=== PATIENT | female | born 1945 | race African-American/Black ===

== ENCOUNTER → 2017-05-12 14:08 | Outpatient (CLI) | payer MEDICARE | END | disposition home or self-care (01) | LOC: D.MAMMO 11:15 | DX: Z12.31 Encounter for screening mammogram for malignant neoplasm of breast (principal) ==

== ENCOUNTER → 2018-05-26 19:29 | Outpatient (CLI) | payer MEDICARE | END | disposition home or self-care (01) | LOC: D.MAMMO 09:30 | DX: Z12.31 Encounter for screening mammogram for malignant neoplasm of breast (principal) ==

== ENCOUNTER 2019-05-30 19:00 | Outpatient (CLI) | payer MEDICARE | END 2019-05-30 23:59 | disposition home or self-care (01) | LOC: D.MAMMO 19:00 | PROVIDERS: ATTEND Family Medicine | DX: Z12.31 Encounter for screening mammogram for malignant neoplasm of breast (principal) ==

== ENCOUNTER 2019-09-13 11:40 | Observation (INO) | payer MEDICARE ==
[2019-09-13] VITALS (8 sets, daily range): BP systolic 123–169; BP diastolic 47–88; Ht 160 cm; Wt 108.2 kg
[~2019-09-13] VITALS: Ht 160 cm; Wt 108.2 kg
--- NOTE | ~2019-09-13 | HEMODYNAMI ---
PATIENT:NADYA CRAMER MEDICAL RECORD: [id number] : 41 [facility] D.2122 [id number] ADMISSION DATE: 09/13/19 Generatedon:09/14/201915:36 Patient name: NADYA CRAMER Patient #: [id number] SSN: [id number] : 1945 Date of study: 09/14/2019 Page: Of Hemodynamic Procedure Report Patient Data Patient Demographics Procedure consent was obtained First Name: NADYA Gender: Female Last Name: BELA : 1945 Patient #: [id number] Age: 74 year(s) Race: Black SSN: [id number] Additional ID: [id number] Contact details Address: [place] [address] State: [place] City: [place] Zip code: [address] Past Medical History Allergies: No known allergies Admission Admission Data Admission Date: 09/13/2019 Admission Time: 13:49 Arrival Date: 09/14/2019 Arrival Time: 0:00 Admit Source: Other Insurance Payor: Medicare Room #: D.2122 [facility] #: [id number] Height (in.): 63 BSA: 2.08 (m2) Height (cm.): 160.02 BMI: 42.25 (kg/m2) Weight (lbs.): 238.5 Weight (kg.): 108.18 Lab Results Lab Result Date: 09/14/2019 Lab Result Time: 0:00 Biochemistry Name Units Result Min Max BUN mg/dl 9 --(*---)-- 7 18 CK-MB ng/ml 2.4 --(--*-)-- 0 3.6 Creatinine mg/dl 0.8 --(-*--)-- 0.6 1.3 eGFR ml/min 73.33899 *-(----)-- 90 120 NONAFRICAN Troponin l ng/ml 0.017 --(-*--)-- 0 0.06 CBC Name Units Result Min Max Hematocrit % 43.6 --(*---)-- 42 54 Hemoglobin g/dl 14.4 --(*---)-- 13.5 17.5 Procedure Procedure Types Cath Procedure Diagnostic Procedure [facility] ED w/Coronaries Procedure Description Procedure Date Procedure Date: 09/14/2019 Procedure Start Time: 15:22 Procedure End Time: 15:35 Procedure Staff Name Function Davidson Jacinto MD Performing Physician Fela Richards RT Monitor Kathrine Sebastian RT Scrub Keith Moctezuma RN Nurse Procedure Data Cath Procedure Fluoroscopy Diagnostic fluoroscopy Total fluoroscopy Time: 1.4 time: 1.4 min min Diagnostic fluoroscopy Total fluoroscopy dose: 369 dose: 369 mGy mGy Contrast Material Contrast Material Type Amount (ml) Isovue 370 40 Entry Location Entry Primary Successful Side Size Upsize Upsize Entry Closure Succes sful Closure Location (Fr) 1 (Fr) 2 (Fr) Remarks Device Remarks Femoral Right 5 Fr Exoseal artery Estimated blood loss: 5 ml Diagnostic catheters Device Type Used For End Catheter Placement MULTIPACK JL 4.0 5Fr Procedure catheter MULTIPACK 3DRC 5Fr Procedure catheter MULTIPACK Pigtail 5 Fr Procedure catheter Procedure Complications No complications Procedure Medications Medication Administration Route Dosage Oxygen etCO2 Nasal cannula 2 l/min Lidocaine 2% added to field 20 Heparin Flush Bag added to field 2 bags (1000units/500ml NS) 0.9% NaCl I.V. 100 ml/hr Versed I.V. 1 mg Fentanyl I.V. 50 mcg Versed I.V. 1 mg Fentanyl I.V. 50 mcg Hemodynamics Rest BSA: 2.08 (m2) O2 Consumption: Estimated: 182.63 (ml/min) O2 Consumption indexed : Estimated:87.8 (ml/min/m) Heart Rate: 62 (bpm) Pressure Samples Time Site Value (mmHg) Purpose Heart Use Rate(bpm) 15:29 LV 134/13,13 Snapshot 62 15:30 AO 116/94(90) Pullback 60 Gradients Valve Time Site Site 2 Mean SEP/DFP Peak To Heart Use 1 (mmHg) (sec/min) Peak Rate (mmHg) (bpm) Aortic 15:30 LV AO 11 14 60 116/94(90) Calculations Valve P-P Mean Valve Index Valve Source Name Gradient Area Flow (cm2) Aortic 11 11 Snapshots Pre Cath Intra NCS Post Cath Vital Signs Time Heart Resp SPO2 etCO2 NIBP (mmHg) Rhythm Pain Sedation Rate (ipm) (%) (mmHg) Status Level (bpm) 15:14:52 53 18 98 25.7 165/92(130) NSR 0 (11) 10(A) , No pain 15:19:10 55 17 98 35.5 146/81(110) NSR 0 (11) 10(A) , No pain 15:23:20 53 20 98 34 142/82(106) NSR 0 (11) 10(A) , No pain 15:27:30 57 15 97 29.5 132/79(106) NSR 0 (11) 10(A) , No pain 15:32:29 57 14 38.5 Measuring NSR 0 (11) 10(A) , No pain 15:32:37 54 14 37.8 132/82(111) NSR 0 (11) 10(A) , No pain Medications Time Medication Route Dose Verified Delivered Reason Notes Eff ectiveness by by 15:15:11 Oxygen etCO2 2 Davidson Keith used for Nasal l/min St Chadd Moctezuma RN procedure cannula 15:15:17 Lidocaine 2% added 20ml Davidson Davidson for local to vial [facility] anesthetic field MD ALBRECHT 15:15:22 Heparin Flush added 2 Davidson Davidson used for Bag to bags [facility] procedure (1000units/500ml field MD ALBRECHT NS) 15:15:30 0.9% NaCl I.V. 100 Davidson Marlenyie Per ml/hr St Chadd Moctezuma RN physician 15:21:09 Versed I.V. 1 mg Davidson [address]ie for St Chadd Moctezuma RN sedation 15:21:14 Fentanyl I.V. 50 Davidson Marlen[address]ie for mcg St Chadd Moctezuma RN sedation 15:25:44 Versed I.V. 1 mg Davidson [address] for St Chadd Moctezuma RN sedation 15:25:48 Fentanyl I.V. 50 Davidson Farmerie for kiera Cantu RN sedation Procedure Log Time Note 14:42:24 Informed consent obtained and on chart 14:42:44 Procedure Status Urgent Heart Cath (IP). 14:42:45 Time tracking: Regular hours (M-F 7:00 - 5:00) 14:42:50 Plan of Care:Hemodynamics will remain stable., Cardiac rhythm will remain stable., Comfort level will be maintained., Respiratory function will remain adequate., Patient/ family verbilizes understanding of procedure., Procedure tolerated without complication., Recovers from procedure without complications.. 14:55:11 H&P Date Dictated: 09/13/2019 Within 30 days and on chart.. 14:55:19 Stress Test: no; N/A ? 14:55:21 Risk of Mortality: 0.2 14:55:24 Risk of blood transfusion: .4 14:55:27 Risk of EMILY: 0.6 14:55:57 Lab results completed and on chart. 14:56:34 Lab Result : BUN 9 mg/dl 14:56:34 Lab Result : Creatinine 0.8 mg/dl 14:56:34 Lab Result : CK-MB 2.4 ng/ml 14:56:34 Lab Result : Troponin l 0.017 ng/ml 14:56:34 Lab Result : eGFR NONAFRICAN 73.35263 ml/min 14:56:34 Lab Result : Hemoglobin 14.4 g/dl 14:56:34 Lab Result : Hematocrit 43.6 % 14:56:41 Alarms reviewed by R. N. 14:56:41 Sharps counted by scrub and verified by R.N. 14:56:55 Keith Moctezuma RN sent for patient. Start room use. 14:57:15 Arrival Date: 09/14/2019 12:00:00 AM 14:57:19 Insurance Payor : Medicare 14:57:39 Admit Source: Other 14:57:45 Patient Height : 63 inches 14:57:49 Patient Weight : 238.5 lbs 15:04:04 Patient received from Med II to CCL 1 Alert and oriented. Tansferred to table in Supine position. 15:04:05 Warm blankets applied, and yariel hugger turned on for patient comfort. 15:04:05 Correct patient and procedure confirmed by team. 15:04:06 ECG and BP/O2 sat monitors applied to patient. 15:04:09 Pre-procedure instructions explained to patient. 15:04:10 Pre-procedure instructions explained to patient. 15:04:15 Pre-op teaching completed and patient verbalized understanding. 15:13:47 Vital chart was started 15:15:11 Oxygen 2 l/min etCO2 Nasal cannula was administered by Buffie Moctezuma RN; used for procedure; Verbal order read back and verified. 15:15:17 Lidocaine 2% 20ml vial added to field was administered by Davidson Jacinto MD; for local anesthetic; Verbal order read back and verified. 15:15:22 Heparin Flush Bag (1000units/500ml NS) 2 bags added to field was administered by Davidson Jacinto MD; used for procedure; Verbal order read back and verified. 15:15:30 0.9% NaCl 100 ml/hr I.V. was administered by Keith Moctezuma RN; Per physician; Verbal order read back and verified. 15:16:25 Family unavailable. 15:16:27 Patient NPO since Lunch. 15:16:32 Patient allergic to No known allergies 15:16:35 Is the patient allergic to Iodine/contrast media? No. 15:16:37 Was the patient premedicated? N/A 15:16:39 Is patient on blood thinner?No 15:16:43 Patient diabetic? No. 15:16:45 If diabetic: On Metformin? N/A 15:16:49 Patient not . Patient is over age 55. 15:16:49 ----Pre-sedation anethsthesia assessment.---- 15:16:52 Previous problem with sedation/anesthesia? No ? 15:16:53 Snore? Yes 15:16:54 Sleep apnea? No 15:16:56 Deviated septum? No 15:16:57 Opens mouth fully? Yes 15:16:58 Sticks out tongue? Yes 15:17:02 Airway obstruction? No ? 15:17:04 Dentures? No ? 15:17:07 Pre procedure: right dorsailis pedis pulse 2+ Normal; easily identifiable; not easily obliterated 15:17:11 Patient pain scale 0/10 ?. 15:17:25 IV patent on arrival in right wrist with 0.9% NaCl at [facility]. 15:17:31 Right groin area was prepped with chlora-prep and draped in sterile fashion 15:17:33 --------ALL STOP TIME OUT------ 15:17:34 Final Timeout: patient, procedure, and site verified with staff and physician. All members of the team are in agreement. 15:17:36 Right groin site verified by team. 15:17:39 Fire Safety Assessment: A--An alcohol-based skin anteseptic being used preoperatively., C--Open oxygen or nitrous oxide is being used., D--An ESU, laser, or fiber-optic light is being used. 15:17:44 Physical assessment completed. ASA score P 2 - A patient with mild systemic disease as per Davidson Jacinto MD. 15:17:47 2) 60-89 Mildly reduced kidney function, and other findings (as for stage 1) point to kidney disease. 15:17:59 Maximum allowable contrast dose (3.7 X eGFR X 0.75)205 ml. 15:18:04 Sedation plan: IV Moderate Sedation Medication:Versed, Fentanyl 15:18:07 Use device set Femoral Dx 15:18:09 ACIST Syringe (28810) opened to sterile field. 15:18:09 Bag Decanter (2002S) opened to sterile field. 15:18:10 Medline Cath Pack ([id number]) opened to sterile field. 15:18:11 ACIST Hand Control (58279) opened to sterile field. 15:18:12 ACIST Manifold (47650) opened to sterile field. 15:18:13 DIAGNOSTIC Multipack 5Fr catheter set (WH0325) opened to sterile field. 15:18:[address] [place] (GXO983) opened to sterile field. 15:18:15 EMERALD Guide Wire (941-748) opened to sterile field. 15:21:09 Versed 1 mg I.V. was administered by Keith Moctezuma RN; for sedation; Verbal order read back and verified. 15:21:14 Fentanyl 50 mcg I.V. was administered by Keith Moctezuma RN; for sedation; Verbal order read back and verified. 15:22:33 Procedure started. 15:22:33 Full Disclosure recording started 15:22:50 Local anesthetic to right femoral artery with Lidocaine 2% by Davidson Jacinto MD.INITIAL ACCESS ONLY 15:23:17 A 5 Fr sheath was inserted into the Right Femoral artery 15:25:00 A MULTIPACK JL 4.0 5Fr catheter was advanced over the wire and used for Procedure. 15:25:44 Versed 1 mg I.V. was administered by Keith Moctezuma RN; for sedation; Verbal order read back and verified. 15:25:48 Fentanyl 50 mcg I.V. was administered by Keith Moctezuma RN; for sedation; Verbal order read back and verified. 15::48 LCA angiography performed. 15::36 Catheter removed. 15::57 A MULTIPACK 3DRC 5Fr catheter was advanced over the wire and used for Procedure. 15:27:29 RCA angiography performed. 15:28:10 Catheter removed. 15::25 A MULTIPACK Pigtail 5 Fr catheter was advanced over the wire and used for Procedure. 15::43 LV hemodynamics recorded. ::47 Injector settings: Ml/sec: 10, Volume: 20, 15::49 LV gram done using GILL 15::55 EF : 55 % 15:30:01 Catheter removed. 15:30:12 EXOSEAL 5Fr (EX500) opened to sterile field. 15:30:22 Sheath removed intact; hemostasis achieved with Exoseal to the Right Femoral artery. 15:30:40 Procedure ended.(Physican Out) 15::48 Fluoroscopy time 01.40 minutes. 15:30:53 Fluoroscopy dose: 369 mGy 15:30:53 Flurop Dose total: 369 15:31:00 Dose Area Product 66073 mGy/cm. 15:31:04 Contrast amount:Isovue 370 40ml. 15:31:06 Sharps counted by scrub and verified by R.N. 15:31:09 Maximum allowable dose exceeded? No. 15:31:14 Post-op/insertion site Right Femoral artery dressed using a 4 x 4 and Tegaderm. 15:31:29 Post right femoral artery:stable, soft, clean and dry 15::37 Post Procedure Pulses reassessed and unchanged 15::40 Post-procedure physical assessment completed. ASA score P 2 - A patient with mild systemic disease as per Davidson Jacinto MD. 15:31:44 Post procedure rhythm: unchanged. 15::46 Estimated blood loss: 5 ml 15::47 Post procedure instruction explained to patient.Patient verbalizes understanding. 15::47 Patient needs reinforcement of post procedure teaching. 15:34:14 [place] 1-Way Male Rotating (N56332) opened to sterile field. 15:34:22 Procedure and supply charges have been captured, reviewed, submitted and are correct. 15::43 Procedure Complication : No complications 15::47 Vital chart was stopped 15:34:50 [facility] Findings: mild to moderate CAD (<70%) 15:34:51 Operative report dictated upon procedure completion. 15:34:52 See physician's report for complete and final results. 15:34:54 Report given to [facility]. 15:34:57 Patient transfered to [facility] II with Bed. 15:35:00 Procedure ended. 15:35:00 Full Disclosure recording stopped 15:35:46 End room use (Document Last) 15:35:56 End room use (Document Last) 15:36:41 End room use (Document Last) Device Usage Item Name Manufacture Quantity Catalog Hospital Part Current Minimal L ot# / Number Charge Number Stock Stock Serial# Code ACIST Acist 1 94053 259357 142894 099613 20 Syringe Medical (80624) Systems Inc Bag Microtek 1 398541 18849 714180 5 Decanter Medical Inc. () Medline Medline 1 [id number] 529858 82954 186074 5 Cath Pack (JLEY06569) ACIST Hand Acist 1 66034 331054 253534 485138 5 Control Medical (73063) Systems Inc ACIST Acist 1 60633 046542 330513 419640 5 Manifold Medical (67192) Systems Inc DIAGNOSTIC Cardinal 1 JL9013 918792 30090 838219 30 Multipack Health 5Fr catheter set (RR2983) SHEATH 5FR Terumo [address] VTD[address] 24[address]95 245739 255266 [address] [place] (CRO194) EMERALD Cardinal 1 502-455 944060 173485 604570 5 Guide Wire Health (502-455) MULTIPACK Cardinal 1 091851 5 JL 4.0 5Fr Health catheter MULTIPACK Cardinal 1 179930 5 3DRC 5Fr Health catheter MULTIPACK Cardinal 1 404222 5 Pigtail 5 Health Fr catheter EXOSEAL 5Fr Cardinal 1 EX500 811596 708059 755498 10 (EX500) [facility] 1 Z53968 202697 40384 036634 [address] 1-[address] Male Rotating (Y00675) Signature Audit [place] Stage Time Signature Unsigned Intra-Procedure 09/14/2019 Fela Richards 3:35:56 PM RT(R) Intra-Procedure 09/14/2019 Keiht Moctezuma RN 3:36:41 PM Intra-Procedure 09/14/2019 Davidson Coffey 3:36:56 PM Chadd ALBRECHT [facility] [address] [place] [address]
--- NOTE | ~2019-09-13 | OP ---
PATIENT NAME: NADYA CRAMER MEDICAL RECORD: [id number] :41 LOCATION:D.M2 D.2121 ADMISSION DATE:09/13/19 SURGEON: BELGICA RODRÍGUEZ MD DATE OF OPERATION: 09/14/2019 PROCEDURE: Left heart catheterization, selective coronary angiography, right femoral artery approach. CATHETERS: A 5-Korean sheath, 5/4 left and right Vinod, 5/4 pig. The procedure was well tolerated. The patient returned to ritchie, sheath removed. ExoSeal device placed. FINDINGS: Left ventriculography in 30-degree GILL view: Normal wall motion, normal systolic function. CORONARY ANATOMY: LEFT MAIN: Left main is free of disease. LAD: LAD is free of disease at the diagonal system . CIRCUMFLEX: Free of disease in the marginal system. RIGHT CORONARY ARTERY: Dominant artery is PDA, free of disease. IMPRESSION: Normal LV systolic function. Normal coronary anatomy. TRANSINT:[id number] Voice Confirmation ID: [id number] DOCUMENT ID: [id number] BELGICA RODRÍGUEZ MD CC: [id number] DICTATION DATE: 09/14/19 1540 CONTROL SYSTEMS ENGINEER: 09/14/19 2212 ADM IN [facility] [address] [place] [address]
[2019-09-13] MEDS ORDERED: COREG6.25 MG (12:07)
[2019-09-13 12:21] LABS: HEMATOCRIT 46.1 % (36.0-48.0); HEMOGLOBIN 15.4 g/dL (12-16); MCHC 33.4 g/dL (31.0-37.0); MCV 86.8 fL (80.0-100.0); MEAN PLATELET VOLUME 9.4 fL (7.4-10.4); PLATELET COUNT 236 10x3/uL (130-400); RBC 5.31 10x6/uL (4.00-5.40); RDW 13.6 % (11.5-14.5); WBC 4.9 10x3/uL (4.8-10.8)
[2019-09-13 12:30] LABS: APTT 31.1 SECONDS (22.8-39.4); CALC OSMOLALITY 280 mosm/kg (275-300); CALCIUM 9.7 mg/dL (8.5-10.1); CARBON DIOXIDE 28.5 mmol/L (21.0-32.0); CHLORIDE - SERUM 104 mmol/L (98-107); GLUCOSE 101 mg/dL (74-106); INR 0.98 (0.85-1.17); POTASSIUM - SERUM 3.8 mmol/L (3.5-5.1); SODIUM 141 mmol/L (136-145); UREA NITROGEN 13 mg/dL (7-18); eGFR NON AFRICAN AMERICAN 57 mL/min (90-120)
[2019-09-13 12:47] LABS: ALBUMIN 3.9 g/dL (3.4-5.0); ALKALINE PHOSPHATASE 96 U/L (30-120); ALT (SGPT) 28 U/L (10-68); BILIRUBIN - TOTAL 0.47 mg/dL (0.2-1.3); CKMB 3.3 U/L (0.0-3.6); CREATINE KINASE 306 UL (21-215); MAGNESIUM - SERUM 2.1 mg/dL (1.8-2.4); PROTEIN - SERUM 8.7 g/dL (6.4-8.2)
[2019-09-13 12:53] LABS: BASOPHILS 1 % (0-2); LYMPHOCYTES 62 % (15-50); MONOCYTES 8 % (2-11); NEUTROPHILS 29 % (40-80); PLATELET ESTIMATE NORMAL
[2019-09-13 12:56] LABS: TROPONIN-I < 0.017 ng/mL (0.000-0.060)
--- NOTE | 2019-09-13 16:11 | NUR ---
CALLED TO GIVE REPORT AND PER STAFF, ROOM IS DIRTY STILL.
[2019-09-13] MEDS ORDERED: COZAAR100 MG PO (17:18)
[2019-09-13] MEDS ORDERED: NORVASC5 MG PO (17:19)
--- NOTE | 2019-09-13 17:23 | NUR ---
RECIVED FROM ER PER WC TO ROOM 2122. ADMIT ASSESSMENT PER RN
--- NOTE | 2019-09-13 18:16 | NUR ---
WITHOUT DISTRESS NOTED AT THIS TIME. FAMILY AT SIDE.
[2019-09-13 19:17] LABS: CREATINE KINASE 293 UL (21-215); TROPONIN-I < 0.017 ng/mL (0.000-0.060)
--- NOTE | 2019-09-13 21:45 | NUR ---
EVENING ROUNDS COMPLETED. AAOX4, DOREEN SOLARES BP 162/72. SCHEDULED NORVASC. GIVEN. PT SITTING ON BEDSIDE. NO PIV ACCESS. PT DENIES ANY FURTHER NEEDS AT THIS TIME. WILL CPOC. CL WITHIN REACH.
[2019-09-14] VITALS: BP 132/68
[2019-09-14 01:29] LABS: CKMB 2.6 U/L (0.0-3.6); CREATINE KINASE 264 UL (21-215)
[2019-09-14 01:33] LABS: TROPONIN-I < 0.017 ng/mL (0.000-0.060)
[2019-09-14 04:00] VITALS: BP 140/61
[2019-09-14 06:09] LABS: HEMATOCRIT 43.6 % (36.0-48.0); HEMOGLOBIN 14.4 g/dL (12-16); MCH 28.8 pg (26.0-34.0); MCV 87.2 fL (80.0-100.0); MEAN PLATELET VOLUME 9.3 fL (7.4-10.4); PLATELET COUNT 200 10x3/uL (130-400); RDW 13.5 % (11.5-14.5); WBC 4.1 10x3/uL (4.8-10.8)
[2019-09-14 07:00] LABS: ALBUMIN 3.3 g/dL (3.4-5.0); ALKALINE PHOSPHATASE 82 U/L (30-120); ALT (SGPT) 26 U/L (10-68); BASOPHILS 1 % (0-2); BILIRUBIN - TOTAL 0.46 mg/dL (0.2-1.3); CARBON DIOXIDE 28.1 mmol/L (21.0-32.0); CHLORIDE - SERUM 107 mmol/L (98-107); CKMB 2.4 U/L (0.0-3.6); CREATINE KINASE 242 UL (21-215); CREATININE - SERUM 0.8 mg/dL (0.6-1.3); EOSINOPHILS 4 % (0-7); GLUCOSE 96 mg/dL (74-106); LYMPHOCYTES 46 % (15-50); MAGNESIUM - SERUM 1.9 mg/dL (1.8-2.4); MONOCYTES 1 % (2-11); NEUTROPHILS 48 % (40-80); PLATELET ESTIMATE NORMAL; POTASSIUM - SERUM 3.9 mmol/L (3.5-5.1); SODIUM 142 mmol/L (136-145); eGFR NON AFRICAN AMERICAN 74 mL/min (90-120)
[2019-09-14 07:01] LABS: POLYCHROMASIA OCC
[2019-09-14 07:04] LABS: CALC OSMOLALITY 281 mosm/kg (275-300); TROPONIN-I < 0.017 ng/mL (0.000-0.060); UREA NITROGEN 9 mg/dL (7-18)
[2019-09-14 09:00] VITALS: BP 160/76
[2019-09-14 09:04] LABS: CHOL - HDL RATIO 3.6 ratio (2.3-4.1); LDL-HDL RATIO 2.4 ratio (1.5-3.5)
[2019-09-14 12:00] VITALS: BP 160/76
--- NOTE | 2019-09-14 13:11 | CN ---
PATIENT NAME:NADYA CRAMER MEDICAL RECORD: [id number] : 41 LOCATION:D. D.2122 ADMIT DATE: 09/13/19 ACCOUNT: [id number] CONSULTING PHYSICIAN: BELGICA RODRÍGUEZ MD REFERRING PHYSICIAN: APRIL NYE MD DATE OF CONSULTATION: 09/14/2019 HISTORY OF PRESENT ILLNESS: A 74-year-old female with a history of hypertension, dyslipidemia, was seen initially in [place] ER with chest pressure and tightness and elevated blood pressure. Medications were changed. Blood pressure still slightly elevated, presented to the ER here with headache, chest pressure and tightness consistent with angina. Does have family history of coronary artery disease. We are asked to see her concerning her cardiovascular status. PAST MEDICAL HISTORY: Includes history of hypertension. ALLERGIES: None known. MEDICATIONS: Include losartan 100 mg p.o. daily, amlodipine 5 mg p.o. daily. SOCIAL HISTORY: Nonsmoker, nondrinker, still works multimedia project manager. Actually does try to walk on a regular basis. REVIEW OF SYSTEMS: The patient reports easy bruising but reports no swollen glands. The patient reports no fever, no night sweats, no significant weight gain, no significant weight loss. No significant exercise tolerance. The patient reports no dry eyes, no irritation, no vision change. Patient reports no difficulty hearing and no ear pain. Patient reports no frequent nose bleeds or nose and sinus problems. Patient reports on arm pain on exertion. No shortness of breath while lying down. No history of heart murmur. Patient reports no cough, no wheezing or coughing up blood. Patient reports no abdominal pain, no vomiting. Normal appetite. No diarrhea and not vomiting blood. No nausea and no constipation. Patient reports no incontinence. No difficulty urinating. No hematuria. No increased frequency. Patient reports no muscle aches. No weakness, no arthralgias, no back pain. No swelling of the extremities. Patient reports no abnormal mole, no jaundice, no rashes. Reports no loss of consciousness. No weakness and no numbness. No seizures, dizziness, or headaches. The patient reports no depression, no sleep disturbance, feeling safe in a relationship and no alcohol abuse. Patient reports on fatigue. Reports no runny nose or sinus pressure. No itching, no hives, and no frequent sneezing. PHYSICAL EXAMINATION: GENERAL: Well-developed, well-nourished, no acute distress. VITAL SIGNS: Blood pressure 140/61, pulse 53 and regular. HEENT: Normocephalic, atraumatic. NECK: No bruits are noted. HEART: Regular, II/ systolic ejection murmur. LUNGS: Good air excursion. ABDOMEN: Soft, nontender. EXTREMITIES: Pulse 2+ with no edema. NEUROLOGIC: Grossly intact. DIAGNOSTIC DATA: EKG shows LVH. CONSULT REPORT [id number] NADYA CRAMER IMPRESSION: Acute coronary syndrome, stable angina, maybe demand ischemia secondary to hypertension; however, given age, etc., we will plan for diagnostic angiography to delineate anatomy. TRANSINT:[id number] Voice Confirmation ID: [id number] DOCUMENT ID: [id number] BELGICA RODRÍGUEZ MD at 1311 CC: [id number] DICTATION DATE: 09/14/19 0835 JAILOR: 09/14/19 1158 ADM IN [facility] [address] [id number]
--- NOTE | 2019-09-14 14:00 | NUR ---
PT REMAINS WAITING QUIETLY SITTING UP IN CHAIR BESIDE BED. PT REMAINS NPO JUST WAITING TO HAVE HER PROCEDURE DONE. CL IN REACH. NO CURRENT NEEDS. WILL CPOC.
--- NOTE | 2019-09-14 14:52 | NUR ---
LETTER CARRIER CALLED TO PRE-OP PT. PRE-OP MEDICATIONS GIVEN. PT IS VERY SKEPTICAL I ANSWERED ALL QUESTIONS AND SHE IS IN BED READY TO GO. NO FURTHER QUESTIONS OR NEEDS AT THIS TIME.
--- NOTE | 2019-09-14 15:07 | NUR ---
PT LEAVING FOR GROWTH HACKER AT THIS TIME. NO CURRENT NEEDS. WAITING IN ROOM. WILL CTM.
--- NOTE | 2019-09-14 15:59 | NUR ---
PT IS BACK FROM PROCEDURE AWAKE AND LYING FLAT IN BED. HEART CATH WAS CLEAN. PT HAS DRSG TO R.GROIN CDI NO S/S OF BLEEDING OR HEMATOMA NOTED. PERIPHERAL PULSES INTACT. VSS AND BEING MONITERED PER POST PROCEDURE POLICY. NS INFUSING VIA R.FA ORDERED. AT BEDSIDE. NO CURRENT NEEDS. WILL CTM.
--- NOTE | 2019-09-14 16:17 | NUR ---
PELON DRSG REMAINS CDI NO S/S OF BLEEDING OR HEMATOMA NOTED. VSS. PT C/O SEVERE ITCHING IN BILAT FEET STATING "ITS MY NEUROPATHY" PT REQUEST ICE PACKS TO HELP SO I PROVIDED HER WITH AN ICE PACK TO EACH FOOT. WILL CTM.
[2019-09-14 16:25] VITALS: BP 171/80
--- NOTE | 2019-09-14 17:27 | NUR ---
PELON DRSG REMAINS CDI NO S/S OF BLEEDING OR HEMATOMA NOTED. VSS AND BEING MONITERED. PERIPHERAL PULSES INTACT. PT STATES RELIEF IN HER "NERVE FEET ITCHING" NO CURRENT NEEDS. WILL CTM.
--- NOTE | 2019-09-14 17:58 | NUR ---
PTS 2HR LAY IS NOW COMPLETE. PT NEEDING TO USE BR. ASSISTED PT UP TO BATHROOM. PELON DRSG REMAINS CDI NO S/S OF BLEEDING OR HEMATOMA NOTED. PT IS STABLE FOR DISCHARGE HOWEVER WE NEED TO MAKE SURE SHE CAN TOLERATE FOOD AND VOID FIRST. PT IS UNSURE IF SHE IS FEELING UP TO IT AND STATES WE CAN WAIT AND SHE HOW SHE FEELS. IF PTS RIDE IS UNABLE TO PICK HER UP AND SHE DOESNT FEEL WELL SHE CAN STAY OVERNIGHT. WILL CTM.
--- NOTE | 2019-09-14 19:41 | NUR ---
EVENING ROUNDS COMPLETED. AFVSS, NO S/S OF RT DISTRESS. RR EVEN AND UNLABORED. DRESSING TO RIGHT GROIN C/D/I. SINUS CHERRI ON MONITOR. COMPLETE BED CHANGE, FRESH LINEN PROVIDED. PT DENIES ANY FURTHER NEEDS AT THIS TIME. WILL CTM. CL WITHIN REACH.
[2019-09-14 20:00] VITALS: BP 155/76
[2019-09-15 05:14] LABS: BASOPHILS 0.6 % (0-2); EOSINOPHILS 3.1 % (0-7); HEMATOCRIT 41.7 % (36.0-48.0); HEMOGLOBIN 13.5 g/dL (12-16); LYMPHOCYTES 60.5 % (15-50); MCH 28.4 pg (26.0-34.0); MCHC 32.4 g/dL (31.0-37.0); MCV 87.6 fL (80.0-100.0); MEAN PLATELET VOLUME 9.7 fL (7.4-10.4); MONOCYTES 12.2 % (2-11); NEUTROPHILS 23.6 % (40-80); PLATELET COUNT 215 10x3/uL (130-400); RBC 4.76 10x6/uL (4.00-5.40); RDW 13.5 % (11.5-14.5); WBC 4.8 10x3/uL (4.8-10.8)
[2019-09-15 05:40] LABS: ANION GAP 10.8 mmol/L (8-16); CALCIUM 8.5 mg/dL (8.5-10.1); MAGNESIUM - SERUM 1.7 mg/dL (1.8-2.4); POTASSIUM - SERUM 3.8 mmol/L (3.5-5.1)
--- NOTE | 2019-09-15 07:10 | NUR ---
REPORT RECEIVED FROM ANALYSIS OR RESEARCH SAFETY INSPECTOR AND PATIENT CARE ASSUMED. PATIENT SITTING UP IN BED TALKING ON PHONE. PATIENT HUNG UP PHONE. PATIENT IS STABLE AND VSS. PATIENT DENIES ANY NEEDS OR PAIN. WILL CONTINUE WITH PLAN OF CARE. SR UP X 2 BED IN LOW POSITION AND CALL LIGHT IN REACH.
[2019-09-15 10:13] VITALS: BP 160/85
--- NOTE | 2019-09-15 16:48 | EC ---
PATIENT:NADYA CRAMER DATE OF SERVICE: 09/13/19 SEX: F MEDICAL RECORD: [id number] DATE OF : 41 LOCATION:D. D.212 AGE OF PATIENT: 74 ADMISSION DATE: 09/13/19 REFERRING PHYSICIAN: INTERPRETING PHYSICIAN: CARMINE ESTRELLA MD ECHOCARDIOGRAM REPORT ECHO CHARGES 4 ECHO COMPLETE Date: 09/14/19 CLINICAL DIAGNOSIS: DYSPNEA ECHOCARDIOGRAPHIC MEASUREMENTS (adult normal given) AC root (d.<3.7cm) 3.3 cm LV Septum d (<1.2 cm> 1.7 cm Valve Excursion 2.1 cm LV Septum (systole) 2.6 cm Left Atria (s.<4.0cm> 4.1 cm LVPW d(<1.2cm) 1.7 cm RV (d.<2.3cm) 2.7 cm LVPW (sytole) 2.4 cm LV diastole(<5.6CM) 5.2 cm MV E-F(>70mm/sec) cm LV systole 2.6 cm LVOT Diameter 2.0 cm MV exc.(>10mm) cm Est.ejection fraction (50-75%) % DOPPLER: LVIT cm/sec A 73.0 cm/sec E 57.0 cm/sec LA cm/sec RVSP 34.0 mmHg LVOT 107 cm/sec AOP1/2T m/s Asc. Ao 143 cm/sec RVOT 62.0 cm/sec RA cm/sec PA 104 cm/sec AV Gradient Peak 8.2 mmHg AV Mean 4.1 mmHg AV Area 2.3 cm MV Gradient Peak 4.3 mmHg MV Mean 0.79 mmHg MV Area cm COMMENTS: Junior Analyst: Dash PAZOE Medicaid Specialist: 1 Dr. Estrella TAPE# PACS Pericardial Effusion N DATE OF SERVICE: 09/14/2019 PROCEDURE: Echocardiogram. FINDINGS: 1. Left ventricular chamber size is within normal limits. Left ventricular systolic function is normal at 55%. 2. Left atrium is enlarged at 4.1 cm. Right atrium and right ventricular chamber sizes are within normal limits. 3. Valvular structures have normal structure and motion. ECHOCARDIOGRAM REPORT [id number] NADYA CRAMER 4. Doppler interrogation reveals trace mitral regurgitation, trace tricuspid regurgitation, no other valvular insufficiency or stenosis. Pulmonary systolic pressure is estimated at 34 mmHg. 5. No evidence of pericardial effusion or left ventricular thrombus. TRANSINT:[id number] Voice Confirmation ID: [id number] DOCUMENT ID: [id number] CARMINE ESTRELLA MD at 1648 CC: [id number] DICTATION DATE: 09/15/19 0743 ACTUARY MANAGER: 09/15/19 1257 DIS IN 09/15/19 [address] [place] [address]
== END 2019-09-15 14:29 | disposition home or self-care (01) ==
LOC: D.ER 11:40 → D.M2 13:49 → OBSVTIME 15:55 → D.M2 09-15 14:29
PROVIDERS: Family Medicine; Internal Medicine Interventional Cardiology; ADMIT Internal Medicine Nephrology; ATTEND Internal Medicine Nephrology
DX: I20.0 Unstable angina (principal); I24.9 Acute ischemic heart disease, unspecified; I10 Essential (primary) hypertension; E78.5 Hyperlipidemia, unspecified

== ENCOUNTER 2020-09-14 16:30 | Outpatient (CLI) | payer MEDICARE ==
[2019-09-13 17:32] VITALS: BMI 42.2
[~2020-09-14 16:30] MED LIST: COREG6.25 MG; COZAAR100 MG PO; NORVASC5 MG PO
== END 2020-09-14 23:59 | disposition home or self-care (01) ==
LOC: D.MAMMO 16:30
PROVIDERS: ATTEND Family Medicine
DX: Z12.31 Encounter for screening mammogram for malignant neoplasm of breast (principal)